=== PATIENT | male | born 1965 | race American Indian/Alaskan Native ===

== ENCOUNTER 2016-10-02 18:50 | Observation (INO) | payer SELFPAY ==
[2016-10-02 19:00] VITALS: TEMP 98.1
--- NOTE | 2016-10-02 19:29 | C.PDOC ---
History Of Present Illness 51 year old male presents to the ED via EMS for public intoxication. Patient shows no signs of injury. Chief Complaint (Nursing): Substance Abuse History Per: EMS History/Exam Limitations: intoxication Onset/Duration Of Symptoms: Hrs Current Symptoms Are (Timing): Still Present Suicide/Self Injury Attempted (Context): None Modifying Factor(s): Alcohol Severity: Mild Recent travel outside of the [place]: No Additional History Per: EMS Past Medical History Reviewed: Historical Data, Nursing Documentation, Vital Signs Vital Signs: Last Vital Signs Temp 98.1 F 10/02/16 19:00 Pulse 80 10/02/16 22:00 Resp 14 10/02/16 22:00 BP 120/80 10/02/16 22:00 Pulse Ox 97 10/03/16 01:07 - Medical History PMH: HTN Surgical History: No Surg Hx - [facility] Procedures ALCOHOL DETOXIFICATION (02/18/14) Family History: States: Unknown Family Hx - Social History Hx Tobacco Use: Yes Hx Alcohol Use: Yes Hx Substance Use: No - Immunization History Hx Tetanus Toxoid Vaccination: Yes Hx Influenza Vaccination: Yes Hx Pneumococcal Vaccination: Yes Review Of Systems Review Of Systems: ROS cannot be obtained secondary to pt's inabilty to answer questions. (Intoxication) Physical Exam - Physical Exam Appears: Non-toxic, Other (+Intoxicated +AOB) Skin: Normal Color, Warm, Dry Head: Atraumatic, Normacephalic, No Abrasion, No Laceration Eye(s): bilateral: Normal Inspection Oral Mucosa: Moist Tongue: Normal Appearing Throat: Normal Neck: Normal, Supple Chest: Symmetrical Respiratory: No Accessory Muscle Use Gastrointestinal/Abdominal: Normal Exam Extremity: No Tenderness, No Deformity, No Swelling ED Course And Treatment - Laboratory Results Result Diagrams: 10/02/16 19:56 10/02/16 19:56 O2 Sat by Pulse Oximetry: 97 (Room air) Pulse Ox Interpretation: Normal - CT Scan/US CT Head W/O contrast Other Rad Studies (CT/US): Read By Radiologist CT/US Interpretation: IMPRESSION: 1. No acute intracranial abnormality. 2. Incidental/non-acute findings are described above. Progress Note: Blood work ordered and reviewed. Progress: Patient is hypotensive, not responsive. Fluids are drained with a bhardwaj. Dextrose, 0.4 mg Narcan and IV fluids given. Upon reevaluation, patient is alert and awake. He has a steady gait and has no focal deficits. Medical Decision Making Medical Decision Making: Patient to be observe , will do a CT of he head. Disposition Counseled Patient/Family Regarding: Diagnosis - Disposition Disposition: HOME/ ROUTINE Disposition Time: 22:50 Condition: STABLE - POA Present On Arrival: None - Clinical Impression Clinical Impression: Drug abuse, Alcohol intoxication - Scribe Statement The provider has reviewed the documentation as recorded by the Scribe Lana Sharma. Provider Attestation: All medical record entries made by the Bernabeibe were at my direction and personally dictated by me. I have reviewed the chart and agree that the record accurately reflects my personal performance of the history, physical exam, medical decision making, and the department course for this patient. I have also personally directed, reviewed, and agree with the discharge instructions and disposition.
[2016-10-02] MEDS ORDERED: Sodium Chloride 0.9% 1,000 ML IV ONE (19:46)
[2016-10-02] MEDS ORDERED: Dextrose 50% SYRINGE Inj (50 ml) IV STA (19:47)
[2016-10-02] MEDS ORDERED: Naloxone 0.4 mg/ml Inj (Adult) IVP ONE (19:47)
[2016-10-02] MEDS ORDERED: Naloxone 0.4 mg/ml Inj (Adult) ONE ×2 (19:58→20:03)
[2016-10-02] MEDS ORDERED: Dextrose 50% SYRINGE Inj (50 ml) ONE (19:58)
[2016-10-02 20:01] LABS: BASO # 0.1 K/uL (0.0-0.2); BASO % 0.9 % (0.0-2.0); EOS # 0.7 K/uL (0.0-0.7); EOS % 7.4 % (0.0-4.0); HEMATOCRIT 36.3 % (35.0-51.0); MEAN CELL VOLUME 95.5 fL (80.0-94.0); MEAN CORPUSCULAR HEMOGLOBIN 31.6 pg (27.0-31.0); MEAN CORPUSCULAR HGB CONC 33.1 g/dL (33.0-37.0); MEAN PLATELET VOLUME 9.4 fL (7.2-11.7); MONO # 1.3 K/uL (0.0-0.8); MONO % 13.4 % (0.0-10.0); NRBC % 0.1 % (0.0-2.0); RED CELL DISTRIBUTION WIDTH 13.7 % (11.5-14.5); WHITE BLOOD COUNT 9.5 K/uL (4.8-10.8)
[2016-10-02 20:08] LABS: CHLORIDE 109 mmol/L (98-107); SODIUM 148 mmol/L (132-148)
[2016-10-02 20:09] LABS: POTASSIUM 4.1 mmol/L (3.6-5.2)
[2016-10-02 20:11] LABS: ALKALINE PHOSPHATASE 47 U/L (38-126); ALT/SGPT 29 U/L (21-72); AST/SGOT 37 U/L (17-59); BILIRUBIN,TOTAL 0.4 mg/dL (0.2-1.3); BLOOD UREA NITROGEN 7 mg/dL (9-20); CALCIUM 8.6 mg/dl (8.6-10.4); CARBON DIOXIDE 25 mmol/L (22-30); GFR AFRICAN-AMERICAN > 60; GLUCOSE,RANDOM 81 mg/dL (75-110); TOTAL PROTEIN 7.6 g/dL (6.3-8.3)
[2016-10-02 20:12] LABS: ALCOHOL SERUM 207 mg/dl (0-10)
--- NOTE | 2016-10-02 21:02 | CT ---
EXAM: CT Head Without Intravenous Contrast. CLINICAL HISTORY: 51 years old, male; Signs and symptoms; Other: Patient ETOH and found unresponsive TECHNIQUE: Axial computed tomography images of the head/brain without intravenous contrast. This CT exam was performed using one or more of the following dose reduction techniques: automated exposure control, adjustment of the mA and/or kV according to patient size, and/or use of iterative reconstruction technique. Coronal and sagittal reformatted images were created and reviewed. COMPARISON: No relevant prior studies available. FINDINGS: Brain: Mild atrophy. No intracranial hemorrhage. No mass. No definite edema. Ventricles: No hydrocephalus. Bones/joints: No acute fracture. Chronic deformity medial wall of LEFT orbit. Soft tissues: Unremarkable. Sinuses: Minimal to mild mucosal thickening of ethmoid, LEFT maxillary sinuses. Mastoid air cells: No mastoid effusion. Orbits: Unremarkable as visualized. IMPRESSION: 1. No acute intracranial abnormality. 2. Incidental/non-acute findings are described above.
[2016-10-02 23:58] VITALS: BP 120/80; PULSE 80; RESP 14
[2016-10-03 00:17] VITALS: O2SAT 97
== END 2016-10-03 00:03 | disposition home or self-care (01) ==
LOC: C.ER 18:50 → C.9OBSV 21:40
PROVIDERS: ADMIT Emergency Medicine; ATTEND Emergency Medicine
DX: F10.129 Alcohol abuse with intoxication, unspecified (principal); F19.10 Other psychoactive substance abuse, uncomplicated; I95.9 Hypotension, unspecified; R40.4 Transient alteration of awareness; Z87.891 Personal history of nicotine dependence; Y90.7 Blood alcohol level of 200-239 mg/100 ml
CPT/HCPCS: 70450; 80053; 82948; 85025; 96374; 99284; G0378; G0480; J2310; J7040

== ENCOUNTER 2017-03-09 10:03 | Emergency (ER) | payer SELFPAY ==
[2017-03-09 10:15] VITALS: BMI 28.8
[2017-03-09 10:16] VITALS: BP 138/92; PULSE 83; RESP 16; TEMP 98.5; O2SAT 97
--- NOTE | 2017-03-09 10:34 | C.PDOC ---
Time Seen by Provider: 03/09/17 10:06 Chief Complaint (Nursing): Substance Abuse Past Medical History Vital Signs: Last Vital Signs Temp 98.5 F 03/09/17 10:14 Pulse 83 03/09/17 10:14 Resp 16 03/09/17 10:14 BP 138/92 H 03/09/17 10:14 Pulse Ox 97 03/09/17 10:14 - Medical History PMH: HTN Denies: Anxiety, Bipolar Disorder, Depression, Diabetes, Hepatitis, HIV, Personality Disorder, Schizophrenia, Seizures, Sexually Transmitted Disease - [facility] Procedures ALCOHOL DETOXIFICATION (02/18/14) Family History: States: Unknown Family Hx - Social History Hx Tobacco Use: Yes Hx Alcohol Use: Yes Hx Substance Use: No - Immunization History Hx Tetanus Toxoid Vaccination: Yes Hx Influenza Vaccination: No Hx Pneumococcal Vaccination: Yes ED Course And Treatment O2 Sat by Pulse Oximetry: 97 Disposition Counseled Patient/Family Regarding: Diagnosis, Need For Followup - Disposition Referrals: [facility] at [facility] [Outside] Disposition: HOME/ ROUTINE Disposition Time: 10:35 Condition: STABLE Additional Instructions: CALL FOR PRESCREENING RETURN TO ER AT LATER DATE TO TRY AGAIN OR IF YOU HAVE ANY CONCERNING SYMPTOMS Instructions: Alcohol Dependence (ED) Forms: [employer] (Beninese) Print Language: IRISH - POA Present On Arrival: None - Clinical Impression Clinical Impression: Alcohol dependence
--- NOTE | 2017-03-09 10:36 | C.PDOC ---
History Of Present Illness 51 year old male presents to the ED seeking detox from alcohol. Patient states he is a daily alcohol drinker and has attempted detox in the past, has "relapsed." He notes he is homeless . Patient has no current physical complants , or HI/SI. Time Seen by Provider: 03/09/17 10:06 Chief Complaint (Nursing): Substance Abuse History Per: Patient History/Exam Limitations: no limitations Onset/Duration Of Symptoms: Persistent Suicide/Self Injury Attempted (Context): None Modifying Factor(s): Alcohol Associated Symptoms: denies: Suicidal Thoughts, Suicidal Plan Additional History Per: Prior Records Past Medical History Reviewed: Historical Data, Nursing Documentation, Vital Signs Vital Signs: Last Vital Signs Temp 98.5 F 03/09/17 10:14 Pulse 83 03/09/17 10:14 Resp 16 03/09/17 10:14 BP 138/92 H 03/09/17 10:14 Pulse Ox 97 03/09/17 10:45 - Medical History PMH: HTN - [facility] Procedures ALCOHOL DETOXIFICATION (02/18/14) Family History: States: No Known Family Hx - Social History Hx Tobacco Use: Yes Hx Alcohol Use: Yes Hx Substance Use: No - Immunization History Hx Tetanus Toxoid Vaccination: Yes Hx Influenza Vaccination: No Hx Pneumococcal Vaccination: Yes Review Of Systems Except As Marked, All Systems Reviewed And Found Negative. Constitutional: Negative for: Fever, Chills Cardiovascular: Negative for: Chest Pain Respiratory: Negative for: Cough, Shortness of Breath Gastrointestinal: Negative for: Nausea, Vomiting, Abdominal Pain Psych: Negative for: Suicidal ideation Physical Exam - Physical Exam Appears: Well, Non-toxic, No Acute Distress Skin: Warm, Dry Head: Atraumatic, Normacephalic Eye(s): bilateral: Normal Inspection Oral Mucosa: Moist Neck: Supple Cardiovascular: Rhythm Regular Respiratory: Normal Breath Sounds, No Rhonchi, No Wheezing Gastrointestinal/Abdominal: Normal Exam, Bowel Sounds, Soft, No Tenderness Extremity: Bilateral: Atraumatic, Normal Color And Temperature, Normal ROM Neurological/Psych: Oriented x3 ED Course And Treatment O2 Sat by Pulse Oximetry: 97 (room air ) Pulse Ox Interpretation: Normal Progress Note: Spoke with crisis counselor, no detox beds are currently available. Explained this to patient, and he was given prescreening phone number and instructed to call or to return to ER at later date to try again. He understands he should return to ED if symptoms worsen. Disposition Counseled Patient/Family Regarding: Diagnosis, Need For Followup - Disposition Referrals: [facility] at [facility] [Outside] Disposition: HOME/ ROUTINE Disposition Time: 10:35 Condition: STABLE Additional Instructions: CALL FOR PRESCREENING RETURN TO ER AT LATER DATE TO TRY AGAIN OR IF YOU HAVE ANY CONCERNING SYMPTOMS Instructions: Alcohol Dependence (ED) Forms: [employer] (Mongolian) Print Language: GEORGIAN - POA Present On Arrival: None - Clinical Impression Clinical Impression: Alcohol dependence - Scribe Statement The provider has reviewed the documentation as recorded by the Scribe Savanna Stevenson All medical record entries made by the Bernabeibe were at my direction and personally dictated by me. I have reviewed the chart and agree that the record accurately reflects my personal performance of the history, physical exam, medical decision making, and the department course for this patient. I have also personally directed, reviewed, and agree with the discharge instructions and disposition.
== END 2017-03-09 10:42 | disposition home or self-care (01) ==
LOC: C.ER 10:03
DX: F10.20 Alcohol dependence, uncomplicated (principal); Y90.9 Presence of alcohol in blood, level not specified; Z59.0 Homelessness

== ENCOUNTER → 2017-03-16 02:25 | Emergency (ER) | payer MEDICAID ==
[2017-03-16 02:25] VITALS: BMI 28.8
[~2017-03-16 02:25] MED LIST: Naproxen 550 mg Tab PO ONE
== END | disposition left against medical advice (07) ==
LOC: C.ER 02:25
DX: Z04.8 Encounter for examination and observation for other specified reasons (principal); Z02.9 Encounter for administrative examinations, unspecified

== ENCOUNTER 2017-03-16 03:29 | Emergency (ER) | payer MEDICAID ==
[2017-03-16 03:29] VITALS: BMI 28.8
[2017-03-16 03:41] VITALS: TEMP 97.4; O2SAT 99
[2017-03-16] MEDS ORDERED: Naproxen 550 mg Tab PO STA (03:54)
--- NOTE | 2017-03-16 04:00 | C.PDOC ---
History Of Present Illness 51 y/o male with a hx chronic back pain, c/o pain to the lower back for several months. Pain is worse with ambulation. Patient is requesting a cane. Denies fall , trauma, weakness, numbness, incontinence of bladder or bowel, or any other complaints. Patient took Tylenol and ibuprofen with no relief. Time Seen by Provider: 03/16/17 03:47 Chief Complaint (Nursing): Back Pain History Per: Patient History/Exam Limitations: no limitations Onset/Duration Of Symptoms: Days (Several months), Persistent (Chronic) Current Symptoms Are (Timing): Still Present Quality Of Discomfort: "Pain" Severity: Mild Exacerbating Factor(s): Movement (Ambulation) Recent travel outside of the [place]: No Additional History Per: Patient Past Medical History Reviewed: Historical Data, Nursing Documentation, Vital Signs Vital Signs: Last Vital Signs Temp 97.4 F L 03/16/17 03:38 Pulse 86 03/16/17 03:38 Resp 16 03/16/17 03:38 BP 109/74 03/16/17 03:38 Pulse Ox 99 03/16/17 04:03 - Medical History PMH: HTN Denies: Anxiety, Bipolar Disorder, Depression, Diabetes, Hepatitis, HIV, Personality Disorder, Schizophrenia, Seizures, Sexually Transmitted Disease - [facility] Procedures ALCOHOL DETOXIFICATION (02/18/14) Family History: States: Unknown Family Hx - Social History Hx Tobacco Use: Yes Hx Alcohol Use: Yes Hx Substance Use: Yes - Immunization History Hx Tetanus Toxoid Vaccination: Yes Hx Influenza Vaccination: No Hx Pneumococcal Vaccination: Yes Review Of Systems Constitutional: Negative for: Other (Fall, trauma) Gastrointestinal: Negative for: Constipation Genitourinary: Negative for: Incontinence (Bladder nor bowel) Neurological: Negative for: Weakness, Numbness Physical Exam - Physical Exam Appears: Non-toxic, No Acute Distress Skin: Warm, Dry Head: Atraumatic, Normacephalic Eye(s): bilateral: Normal Inspection Gastrointestinal/Abdominal: Normal Exam Back: No CVA Tenderness, No Vertebral Tenderness, Paraspinal Tenderness (lumbar) , No Straight Leg Raising Extremity: Normal ROM, No Deformity, No Swelling Extremity: Bilateral: Atraumatic, Normal Color And Temperature Pulses: Left Dorsalis Pedis: Normal, Right Dorsalis Pedis: Normal Neurological/Psych: Oriented x3, Normal Motor, Normal Sensation, Other (No focal deficit) Gait: Steady ED Course And Treatment O2 Sat by Pulse Oximetry: 99 (RA) Pulse Ox Interpretation: Normal Progress Note: impression: 51 y/o male with a hx chronic back pain, c/o intermittent pain for several months. Plans: Naproxen. Naproxen PO was given to the patient. Patient is in no acute distress and is fully ambulatory with steady gait. Pt was advised to follow up with PMD for further evaluation. Reassessment Condition: Improved Disposition - Disposition Referrals: [facility] at [facility] [Outside] Disposition: HOME/ ROUTINE Disposition Time: 04:14 Condition: STABLE Prescriptions: Naproxen [Naprosyn] 1 tab PO BID PRN #14 tab PRN Reason: Pain Instructions: Chronic Back Pain (ED) Forms: [employer] (Scottish) - Clinical Impression Clinical Impression: Chronic back pain - Scribe Statement The provider has reviewed the documentation as recorded by the Scribe Belle esquivel All medical record entries made by the Scribe were at my direction and personally dictated by me. I have reviewed the chart and agree that the record accurately reflects my personal performance of the history, physical exam, medical decision making, and the department course for this patient. I have also personally directed, reviewed, and agree with the discharge instructions and disposition.
[2017-03-16 04:17] VITALS: BP 110/74; PULSE 84; RESP 20
== END 2017-03-16 04:16 | disposition home or self-care (01) ==
LOC: C.ER 03:29
DX: G89.29 Other chronic pain (principal); M54.5 Low back pain

== ENCOUNTER 2017-05-11 19:28 | Emergency (ER) | payer MEDICAID ==
[2017-05-11 19:28] VITALS: BMI 28.8
[2017-05-11 20:17] VITALS: BP 115/72; PULSE 90; RESP 20; TEMP 97.6; O2SAT 98
== END 2017-05-11 20:08 | disposition left against medical advice (07) ==
LOC: C.ER 19:28
DX: Z02.89 Encounter for other administrative examinations (principal); Z00.00 Encounter for general adult medical examination without abnormal findings

== ENCOUNTER 2017-08-26 17:17 | Emergency (ER) | payer SELFPAY ==
[2017-08-26 17:17] VITALS: BMI 28.8
[2017-08-26 17:26] VITALS: BP 130/90; PULSE 97; RESP 15; TEMP 97.2; O2SAT 97
== END 2017-08-26 17:23 | disposition left against medical advice (07) ==
LOC: C.ER 17:17
DX: Z02.89 Encounter for other administrative examinations (principal); F10.10 Alcohol abuse, uncomplicated

== ENCOUNTER 2017-09-06 18:21 | Emergency (ER) | payer SELFPAY ==
[2017-09-06 19:03] VITALS: BMI 28.1
[2017-09-06] MEDS ORDERED: Sodium Chloride 0.9% 1,000 ML ONE ×2 (19:32→21:14)
[2017-09-06] MEDS ORDERED: Sodium Chloride 0.9% 1,000 ML IV ONE ×2 (19:32→20:59)
--- NOTE | 2017-09-06 20:26 | C.PDOC ---
History Of Present Illness <Micki Cruz - Last Filed: 09/06/17 21:39> <Kateryna Benedict - Last Filed: 09/07/17 00:39> HPI: 52 year old male with no past medical history presents to the ED due alcohol intoxication. Difficult to attain ROS due to patient's current intoxication state. Patient states he drank 4 pints of vodka today, two 6 packs of beer (16oz) today. He states he does have history of DT and shakes if he does not drink. Patient states he does not recall where he was prior to arriving at the hospital. Patient denies complaints at this moment. Past Medical History: denies Allergies: fish Social History: Drinking for over 30 years vodka and beer, denies smoking or illicit drug use (Micki Cruz) History Per: Patient History/Exam Limitations: intoxication <Micki Cruz - Last Filed: 09/06/17 21:39> <Kateryna Benedict - Last Filed: 09/07/17 00:39> Chief Complaint (Nursing): Substance Abuse Past Medical History - Medical History PMH: HTN Denies: Anxiety, Bipolar Disorder, Depression, Diabetes, Hepatitis, HIV, Personality Disorder, Schizophrenia, Seizures, Sexually Transmitted Disease Family History: States: Unknown Family Hx - Social History Hx Tobacco Use: Yes Hx Alcohol Use: Yes Hx Substance Use: Yes - Immunization History Hx Tetanus Toxoid Vaccination: Yes Hx Influenza Vaccination: No Hx Pneumococcal Vaccination: Yes <Micki Cruz - Last Filed: 09/06/17 21:39> Vital Signs: Last Vital Signs Temp 98.0 F 09/06/17 22:09 Pulse 98 H 09/06/17 22:09 Resp 18 09/06/17 22:09 BP 130/79 09/06/17 22:09 Pulse Ox 97 09/06/17 22:09 - [facility] Procedures ALCOHOL DETOXIFICATION (02/18/14) Review Of Systems Review Of Systems: ROS cannot be obtained secondary to pt's inabilty to answer questions. <Micki Cruz - Last Filed: 09/06/17 21:39> Physical Exam - Physical Exam Appears: Toxic Skin: Normal Color, Other (left upper extremity -forearm has scars - patient states he cut himself a few years back because he was depressed ) Head: Atraumatic, Normacephalic Eye(s): bilateral: Normal Inspection, PERRL, EOMI Oral Mucosa: Moist Cardiovascular: Rhythm Regular Respiratory: Normal Breath Sounds, No Decreased Breath Sounds, No Accessory Muscle Use Gastrointestinal/Abdominal: Normal Exam, Bowel Sounds (normal), Soft, No Tenderness Extremity: No Tenderness, No Pedal Edema <Micki Cruz - Last Filed: 09/06/17 21:39> ED Course And Treatment - Laboratory Results Result Diagrams: 09/06/17 21:03 09/06/17 21:03 O2 Sat by Pulse Oximetry: 98 <Micki Cruz - Last Filed: 09/06/17 21:39> - Laboratory Results Result Diagrams: 09/06/17 21:03 09/06/17 21:03 Lab Interpretation: Abnormal (HCO3 19, K+ 3.1 UDS + benzos ETOH 159) Pulse Ox Interpretation: Normal Progress Note: Patient treated with 2 liters of normal saline. Heart rate and blood presure normalized. 12:40 Patient continues to be groggy with slurred speech, appearing intoxicated. Now admits to taking Ativan twice today. <Kateryna Benedict - Last Filed: 09/07/17 00:39> Medical Decision Making <Micki Cruz - Last Filed: 09/06/17 21:39> <Kateryna Benedict - Last Filed: 09/07/17 00:39> Medical Decision Making: Substance Abuse: CBC: H/H: 11.5/33.9 K: 3.1 - repleated Kdur 40mg once - UDS: + benzodiazepines - Serum Alcohol: 159 (Micki Cruz) Disposition <Micki Cruz - Last Filed: 09/06/17 21:39> - Disposition Disposition Time: 00:38 <Kateryna Benedict - Last Filed: 09/07/17 00:39> - Disposition Condition: IMPROVED Forms: [facility] (Estonian) - Clinical Impression Clinical Impression: Polysubstance abuse, Dehydration - PA / [employer] / Resident Statement MD/DO has reviewed & agrees with the documentation as recorded. MD/ has examined the patient and agrees with the treatment plan. <Micki Cruz - Last Filed: 09/06/17 21:39> Physician Patient Turnover Patient Signed Over To: Fanny Hall Handoff Comments: pending sobriety <Kateryna Benedict - Last Filed: 09/07/17 00:39>
--- NOTE | 2017-09-06 20:36 | C.PDOC ---
Chief Complaint (Nursing): Substance Abuse Past Medical History Vital Signs: Last Vital Signs Temp 99.6 F 09/06/17 19:03 Pulse 102 H 09/06/17 20:10 Resp 18 09/06/17 20:10 BP 108/70 09/06/17 20:10 Pulse Ox 98 09/06/17 20:10 - Medical History PMH: HTN Denies: Anxiety, Bipolar Disorder, Depression, Diabetes, Hepatitis, HIV, Personality Disorder, Schizophrenia, Seizures, Sexually Transmitted Disease - [facility] Procedures ALCOHOL DETOXIFICATION (02/18/14) Family History: States: Unknown Family Hx - Social History Hx Tobacco Use: Yes Hx Alcohol Use: Yes Hx Substance Use: Yes - Immunization History Hx Tetanus Toxoid Vaccination: Yes Hx Influenza Vaccination: No Hx Pneumococcal Vaccination: Yes ED Course And Treatment O2 Sat by Pulse Oximetry: 98 Disposition - Disposition
[2017-09-06 21:06] LABS: BASO # 0.1 K/uL (0.0-0.2); BASO % 0.6 % (0.0-2.0); EOS % 0.5 % (0.0-4.0); HEMOGLOBIN 11.5 g/dL (12.0-18.0); LYMPH # 2.3 K/uL (1.0-4.3); LYMPH % 26.6 % (20.0-40.0); MEAN CORPUSCULAR HEMOGLOBIN 30.5 pg (27.0-31.0); MEAN CORPUSCULAR HGB CONC 33.8 g/dL (33.0-37.0); MEAN PLATELET VOLUME 9.3 fL (7.2-11.7); MONO % 11.6 % (0.0-10.0); NEUT # 5.2 K/uL (1.8-7.0); NEUT % 60.7 % (50.0-75.0); NRBC % 0.1 % (0.0-2.0); RBC 3.76 Mil/uL (4.40-5.90); RED CELL DISTRIBUTION WIDTH 15.4 % (11.5-14.5); WHITE BLOOD COUNT 8.5 K/uL (4.8-10.8)
[2017-09-06 21:08] LABS: MEAN CELL VOLUME 90.1 fL (80.0-94.0)
[2017-09-06 21:21] LABS: ALB/GLOB RATIO 1.2 (1.0-2.1); ALBUMIN 4.1 g/dL (3.5-5.0); ALT/SGPT 25 U/L (21-72); AST/SGOT 51 U/L (17-59); BLOOD UREA NITROGEN 9 mg/dL (9-20); CALCIUM 9.2 mg/dl (8.6-10.4); GFR AFRICAN-AMERICAN > 60; GFR NON-AFRICAN AMERICAN > 60
[2017-09-06 21:32] LABS: BARBITURATES, UR NEGATIVE (NEGATIVE); OPIATES, UR NEGATIVE (NEGATIVE); PHENCYCLIDINE, UR NEGATIVE (NEGATIVE)
[2017-09-06 21:33] LABS: BENZODIAZEPINES, UR POSITIVE (NEGATIVE)
[2017-09-06] MEDS ORDERED: Potassium Chloride 20 mEq ER Tab PO ONE (22:06)
[2017-09-07 05:13] VITALS: BP 149/76; PULSE 76; RESP 20; TEMP 98.6; O2SAT 96
[2017-09-07] MEDS ORDERED: Potassium Chloride 20 mEq ER Tab PO ONE (21:40)
--- NOTE | 2017-09-08 13:21 | CARD ---
APPROVED REPORT EKG Measurement Heart [id number] <Conclusion> Sinus tachycardia T wave abnormality, consider inferior ischemia Abnormal ECG
== END 2017-09-07 05:04 | disposition home or self-care (01) ==
LOC: C.ER 18:21
DX: F19.10 Other psychoactive substance abuse, uncomplicated (principal); E86.0 Dehydration; E87.6 Hypokalemia
CPT/HCPCS: 80053; 82948; 85025; 93005; 96360; 96361; 99285; G0480; J7040

== ENCOUNTER 2017-09-10 16:55 | Emergency (ER) | payer MEDICAID ==
[2017-09-10 17:08] VITALS: BMI 30.4
[2017-09-10 17:13] VITALS: TEMP 96
[2017-09-10 18:56] VITALS: O2SAT 100
--- NOTE | 2017-09-10 19:57 | C.PDOC ---
History Of Present Illness Patient is a 52 y/o male who presents to the ED [facility] for public intoxication. Patient has many prior evaluations for the same; last seen at [place] yesterday and presents to [facility] ED today as fourth visit this month. Patient has no physical complains at this time. Time Seen by Provider: 09/10/17 17:49 Chief Complaint (Nursing): Substance Abuse History Per: Patient, EMS History/Exam Limitations: no limitations Onset/Duration Of Symptoms: Hrs Current Symptoms Are (Timing): Still Present Suicide/Self Injury Attempted (Context): None Modifying Factor(s): Alcohol Recent travel outside of the [place]: No Past Medical History Reviewed: Historical Data, Nursing Documentation, Vital Signs Vital Signs: Last Vital Signs Temp 96 F L 09/10/17 17:08 Pulse 95 H 09/10/17 21:30 Resp 12 09/10/17 21:30 BP 106/71 09/10/17 21:30 Pulse Ox 100 09/10/17 21:30 - Medical History PMH: HTN Denies: Anxiety, Bipolar Disorder, Depression, Diabetes, Hepatitis, HIV, Personality Disorder, Schizophrenia, Seizures, Sexually Transmitted Disease Surgical History: No Surg Hx - [facility] Procedures ALCOHOL DETOXIFICATION (02/18/14) Family History: States: No Known Family Hx - Social History Hx Tobacco Use: Yes Hx Alcohol Use: Yes Hx Substance Use: Yes - Immunization History Hx Tetanus Toxoid Vaccination: Yes Hx Influenza Vaccination: No Hx Pneumococcal Vaccination: Yes Review Of Systems Neurological: Positive for: Other (EtOH intoxication) Physical Exam - Physical Exam Appears: Well, No Acute Distress, Other (EtOH on breath) Skin: Normal Color, Warm, Dry Head: Atraumatic, Normacephalic Oral Mucosa: Moist Chest: Symmetrical Cardiovascular: Rhythm Regular, No Murmur Respiratory: Normal Breath Sounds, No Rales, No Rhonchi, No Wheezing Gastrointestinal/Abdominal: Soft, No Tenderness Neurological/Psych: Other (responsive to only painful stimuli) ED Course And Treatment O2 Sat by Pulse Oximetry: 100 - CT Scan/US head CT Other Rad Studies (CT/US): Interpreted By Me (neg), Radiology Report Reviewed Progress Note: CT head ordered. Reevaluation Time: 21:50 Reassessment Condition: Improved (awake, alert, oriented) Medical Decision Making Medical Decision Making: typical alcohol abuse has a home to go to tonight not too cold to d/c to street. Disposition Doctor Will See Patient In The: Office Counseled Patient/Family Regarding: Studies Performed, Diagnosis - Disposition Disposition: HOME/ ROUTINE Disposition Time: 21:51 Condition: GOOD Forms: [facility] (Ukrainian) - Clinical Impression Clinical Impression: Alcohol abuse - Scribe Statement The provider has reviewed the documentation as recorded by the Scribe Michelle Bone All medical record entries made by the Scribe were at my direction and personally dictated by me. I have reviewed the chart and agree that the record accurately reflects my personal performance of the history, physical exam, medical decision making, and the department course for this patient. I have also personally directed, reviewed, and agree with the discharge instructions and disposition.
--- NOTE | 2017-09-10 21:02 | CT ---
EXAM: CT Head Without Intravenous Contrast CLINICAL HISTORY: 52 years old, male; Signs and symptoms; Altered mental status/memory loss; Additional info: ETOH, change of ms, ? trauma TECHNIQUE: Axial computed tomography images of the head/brain without intravenous contrast. All CT scans at this facility use one or more dose reduction techniques, viz.: automated exposure control; ma/kV adjustment per patient size (including targeted exams where dose is matched to indication; i.e. head); or iterative reconstruction technique. COMPARISON: CT - HEAD W/O CONTRAST 2016-10-02 20:40 FINDINGS: Brain: Hypodensity in the white matter consistent with chronic small vessel disease. No mass, mass effect, or midline shift. No hemorrhage. Ventricles: Unremarkable. No ventriculomegaly. Bones/joints: Unremarkable. No acute fracture. Soft tissues: Unremarkable. Sinuses: Bilateral maxillary sinus mucosal thickening. The Mastoid air cells: Unremarkable as visualized. No mastoid effusion. IMPRESSION: No acute intracranial abnormality.
[2017-09-10 21:45] VITALS: BP 106/71; PULSE 95; RESP 12
== END 2017-09-10 22:45 | disposition home or self-care (01) ==
LOC: C.ER 16:55
DX: F10.10 Alcohol abuse, uncomplicated (principal)

== ENCOUNTER 2017-09-26 23:03 | Emergency (ER) | payer MEDICAID ==
[2017-09-26 23:03] VITALS: BMI 30.4
--- NOTE | 2017-09-26 23:07 | C.PDOC ---
History Of Present Illness 52 year old male is brought to the ED by EMS after being found in the street intoxicated. Patient was found by the Police intoxicated in the street, upon arrival to the ED patient states he wants a pace to stay the night. Patient denies Si/HI, hallucinations, CP, SOB, abdominal pain. Time Seen by Provider: 09/26/17 23:06 History Per: Patient History/Exam Limitations: intoxication Onset/Duration Of Symptoms: Hrs Current Symptoms Are (Timing): Still Present Suicide/Self Injury Attempted (Context): None Modifying Factor(s): Alcohol Associated Symptoms: denies: Depression, Suicidal Thoughts, Suicidal Plan Involuntary Hold By: None Recent travel outside of the [place]: No Additional History Per: Patient Past Medical History Reviewed: Historical Data, Nursing Documentation, Vital Signs Vital Signs: Last Vital Signs Temp 97.8 F 09/27/17 05:27 Pulse 100 H 09/27/17 05:27 Resp 16 09/27/17 05:27 BP 129/68 09/27/17 05:27 Pulse Ox 98 09/27/17 05:27 - Medical History PMH: HTN Denies: Anxiety, Bipolar Disorder, Depression, Diabetes, Hepatitis, HIV, Personality Disorder, Schizophrenia, Seizures, Sexually Transmitted Disease Surgical History: No Surg Hx - [facility] Procedures ALCOHOL DETOXIFICATION (02/18/14) Family History: States: Unknown Family Hx - Social History Hx Tobacco Use: Yes Hx Alcohol Use: Yes Hx Substance Use: Yes - Immunization History Hx Tetanus Toxoid Vaccination: Yes Hx Influenza Vaccination: No Hx Pneumococcal Vaccination: Yes Review Of Systems Constitutional: Negative for: Fever, Chills Cardiovascular: Negative for: Chest Pain Respiratory: Negative for: Shortness of Breath Gastrointestinal: Negative for: Vomiting, Abdominal Pain Skin: Negative for: Rash Neurological: Negative for: Headache Psych: Negative for: Depression, Suicidal ideation Physical Exam - Physical Exam Appears: Non-toxic, No Acute Distress Skin: Warm, Dry Head: Normacephalic Eye(s): bilateral: Normal Inspection Nose: No Discharge, No Deformity Oral Mucosa: Moist Neck: Supple Chest: Symmetrical Cardiovascular: Rhythm Regular, No Murmur Respiratory: No Rales, No Rhonchi, No Wheezing Gastrointestinal/Abdominal: Soft, No Tenderness, No Guarding, No Rebound Extremity: Normal ROM, No Tenderness, No Swelling Neurological/Psych: Oriented x3 ED Course And Treatment O2 Sat by Pulse Oximetry: 97 (ON RA) Pulse Ox Interpretation: Normal Reevaluation Time: 05:39 Reassessment Condition: Improved Disposition Counseled Patient/Family Regarding: Studies Performed, Diagnosis, Need For Followup - Disposition Referrals: [facility] [Outside] Disposition: HOME/ ROUTINE Disposition Time: 23:06 Condition: FAIR Instructions: Alcohol Abuse and Alcoholism (DC) Forms: [facility] (Zimbabwean) - Clinical Impression Clinical Impression: Alcohol abuse, Alcohol intoxication - Scribe Statement The provider has reviewed the documentation as recorded by the Scribe Jovany Kline All medical record entries made by the Scribe were at my direction and personally dictated by me. I have reviewed the chart and agree that the record accurately reflects my personal performance of the history, physical exam, medical decision making, and the department course for this patient. I have also personally directed, reviewed, and agree with the discharge instructions and disposition.
[2017-09-27 05:28] VITALS: BP 129/68; PULSE 100; RESP 16; TEMP 97.8
[2017-09-27 05:39] VITALS: O2SAT 97
== END 2017-09-27 05:28 | disposition home or self-care (01) ==
LOC: C.ER 23:03
DX: F10.129 Alcohol abuse with intoxication, unspecified (principal); I10 Essential (primary) hypertension; Z72.0 Tobacco use

== ENCOUNTER 2017-10-02 22:29 | Emergency (ER) | payer MEDICAID ==
[2017-10-02 22:29] VITALS: BMI 30.4
[2017-10-02 23:01] VITALS: O2SAT 96
--- NOTE | 2017-10-03 01:26 | C.PDOC ---
History Of Present Illness Pt is a 52 yo who presents requesting detox.He is a daily drinker,claims he last ingested yesterday Chief Complaint (Nursing): Substance Abuse History Per: Patient History/Exam Limitations: no limitations Onset/Duration Of Symptoms: Unknown Modifying Factor(s): Alcohol Severity: Mild Associated Symptoms: denies: Anger, Anxiety, Suicidal Plan Past Medical History Vital Signs: Last Vital Signs Temp 97.9 F 10/03/17 01:42 Pulse 83 10/03/17 01:42 Resp 18 10/03/17 01:42 BP 122/71 10/03/17 01:42 Pulse Ox 98 10/03/17 01:42 - Medical History PMH: HTN Denies: Anxiety, Bipolar Disorder, Depression, Diabetes, Hepatitis, HIV, Personality Disorder, Schizophrenia, Seizures, Sexually Transmitted Disease - [facility] Procedures ALCOHOL DETOXIFICATION (02/18/14) Family History: States: Unknown Family Hx - Social History Hx Tobacco Use: Yes Hx Alcohol Use: Yes Hx Substance Use: Yes - Immunization History Hx Tetanus Toxoid Vaccination: Yes Hx Influenza Vaccination: No Hx Pneumococcal Vaccination: Yes Review Of Systems Except As Marked, All Systems Reviewed And Found Negative. Physical Exam - Physical Exam Appears: Non-toxic Skin: Normal Color Head: Atraumatic Eye(s): bilateral: Normal Inspection, PERRL Ear(s): Bilateral: Normal Tongue: Normal Appearing Lips: Normal Appearing Neck: Normal, Normal ROM Lymphatic: Deferred Chest: Symmetrical Cardiovascular: Rhythm Regular Respiratory: Normal Breath Sounds Gastrointestinal/Abdominal: Normal Exam Back: Normal Inspection Male Genital: Normal Inspection Extremity: Normal ROM Neurological/Psych: Oriented x3, Normal Speech, Normal Cognition Gait: Steady ED Course And Treatment O2 Sat by Pulse Oximetry: 96 Progress Note: there are currently no detox beds available.Pt is clinically sober,does not appear to be in withdrawal.Will provide withdrawal prophylaxis, give pt referrals to call for detox admission Disposition - Disposition Referrals: Alcoholics Anonymous [Outside] Disposition: HOME/ ROUTINE Disposition Time: 01:25 Condition: GOOD Additional Instructions: pt given contact numbers for detox programs in the area Prescriptions: chlordiazePOXIDE [Chlordiazepoxide HCl] 25 mg PO TID #9 cap Instructions: Alcohol Use - When Is Drinking a Problem? Forms: [employer] [facility] (Sami) - Clinical Impression Clinical Impression: Alcohol dependence
[2017-10-03 02:21] VITALS: BP 122/71; PULSE 83; RESP 18; TEMP 97.9
== END 2017-10-03 01:45 | disposition home or self-care (01) ==
LOC: C.ER 22:29
DX: F10.20 Alcohol dependence, uncomplicated (principal); Y90.9 Presence of alcohol in blood, level not specified

== ENCOUNTER 2017-10-04 00:52 | Emergency (ER) | payer MEDICAID ==
[2017-10-04 00:52] VITALS: BMI 30.4
[2017-10-04 01:01] VITALS: RESP 18
[2017-10-04 01:55] LABS: BASO # 0.1 K/uL (0.0-0.2); BASO % 1.1 % (0.0-2.0); EOS # 0.4 K/uL (0.0-0.7); EOS % 4.5 % (0.0-4.0); HEMOGLOBIN 13.4 g/dL (12.0-18.0); LYMPH # 3.1 K/uL (1.0-4.3); LYMPH % 33.3 % (20.0-40.0); MEAN CELL VOLUME 92.5 fL (80.0-94.0); MEAN CORPUSCULAR HEMOGLOBIN 31.1 pg (27.0-31.0); MEAN CORPUSCULAR HGB CONC 33.6 g/dL (33.0-37.0); MEAN PLATELET VOLUME 8.1 fL (7.2-11.7); MONO # 0.8 K/uL (0.0-0.8); MONO % 8.2 % (0.0-10.0); NEUT % 52.9 % (50.0-75.0); NRBC % 0.2 % (0.0-2.0); RBC 4.29 Mil/uL (4.40-5.90); RED CELL DISTRIBUTION WIDTH 15.1 % (11.5-14.5); WHITE BLOOD COUNT 9.4 K/uL (4.8-10.8)
--- NOTE | 2017-10-04 02:04 | C.PDOC ---
History Of Present Illness <Heaven Allen - Last Filed: 10/04/17 05:56> <Rhiannon Zayas - Last Filed: 10/04/17 06:26> 52 year old male presents to the ED requesting detox from alcohol. Patient states he drinks 3 paint of vodka daily. Patient reports his last drink was today 1 hour [employer]. Patient denies other complaints, SI/HI, hallucinations, CP, SOB, abdominal pain. (Rhiannon Zayas) <Heaven Allen - Last Filed: 10/04/17 05:56> History Per: Patient History/Exam Limitations: no limitations Onset/Duration Of Symptoms: Hrs Current Symptoms Are (Timing): Still Present Suicide/Self Injury Attempted (Context): None Modifying Factor(s): Alcohol Associated Symptoms: denies: Depression, Suicidal Thoughts, Suicidal Plan Involuntary Hold By: None Recent travel outside of the [place]: No Additional History Per: Patient <Rhiannon Zayas - Last Filed: 10/04/17 06:26> Time Seen by Provider: 10/04/17 01:37 Chief Complaint (Nursing): Substance Abuse Past Medical History Reviewed: Historical Data, Nursing Documentation, Vital Signs - Medical History PMH: HTN Denies: Anxiety, Bipolar Disorder, Depression, Diabetes, Hepatitis, HIV, Personality Disorder, Chronic Kidney Disease, Schizophrenia, Seizures, Sexually Transmitted Disease Surgical History: No Surg Hx Family History: States: Unknown Family Hx - Social History Hx Tobacco Use: Yes Hx Alcohol Use: Yes Hx Substance Use: Yes (PT DENIES) - Immunization History Hx Tetanus Toxoid Vaccination: Yes Hx Influenza Vaccination: No Hx Pneumococcal Vaccination: Yes <Rhiannon Zayas - Last Filed: 10/04/17 06:26> Vital Signs: Last Vital Signs Temp 97.9 F 10/04/17 05:18 Pulse 87 10/04/17 05:18 Resp 18 10/04/17 05:18 BP 95/57 L 10/04/17 05:18 Pulse Ox 97 10/04/17 05:18 - [facility] Procedures ALCOHOL DETOXIFICATION (02/18/14) Review Of Systems Constitutional: Negative for: Fever, Chills Cardiovascular: Negative for: Chest Pain Respiratory: Negative for: Cough, Shortness of Breath Gastrointestinal: Negative for: Nausea, Abdominal Pain Skin: Negative for: Rash Psych: Negative for: Depression, Suicidal ideation <Rhiannon Zayas - Last Filed: 10/04/17 06:26> Physical Exam - Physical Exam Appears: Non-toxic, No Acute Distress Skin: Normal Color, Warm, Dry Head: Atraumatic, Normacephalic Eye(s): bilateral: Normal Inspection Nose: No Discharge Oral Mucosa: Moist Neck: Normal ROM, Supple Chest: Symmetrical Cardiovascular: Rhythm Regular, No Murmur Respiratory: Normal Breath Sounds, No Rales, No Rhonchi, No Wheezing Gastrointestinal/Abdominal: Soft, No Tenderness, No Guarding, No Rebound Extremity: Normal ROM, No Tenderness, No Swelling Neurological/Psych: Oriented x3 <Rhiannon Zayas - Last Filed: 10/04/17 06:26> ED Course And Treatment - Laboratory Results Result Diagrams: 10/04/17 01:52 10/04/17 01:52 <Heaven Allen - Last Filed: 10/04/17 05:56> - Laboratory Results Result Diagrams: 10/04/17 01:52 10/04/17 01:52 O2 Sat by Pulse Oximetry: 98 (On RA) Pulse Ox Interpretation: Normal Progress Note: Plan: - Labs. - UA. - Crisis evaluation. Pt was screened by crisis and case d/w Dr Helm and will not admit pt to detox as pt was recently detoxed. Pt remains stable in ED and AAOx3, pt will be d/c Reassessment Condition: Improved <Rhiannon Zayas - Last Filed: 10/04/17 06:26> Disposition - Disposition Disposition Time: 05:57 <Heaven Allen - Last Filed: 10/04/17 05:56> <Rhiannon Zayas - Last Filed: 10/04/17 06:26> - Disposition Referrals: [facility] [Outside] Disposition: HOME/ ROUTINE Condition: STABLE Forms: [facility] (Sinhala) - Clinical Impression Clinical Impression: Alcohol dependence <Heaven Allen - Last Filed: 10/04/17 05:56> - PA / PLANT CHANGER / Resident Statement MD/DO has reviewed & agrees with the documentation as recorded. - Scribe Statement The provider has reviewed the documentation as recorded by the Scribe <Rhiannon Zayas - Last Filed: 10/04/17 06:26> - Scribe Statement Jovany Kline All medical record entries made by the Scribe were at my direction and personally dictated by me. I have reviewed the chart and agree that the record accurately reflects my personal performance of the history, physical exam, medical decision making, and the department course for this patient. I have also personally directed, reviewed, and agree with the discharge instructions and disposition. (Rhiannon Zayas)
[2017-10-04 02:13] LABS: ALBUMIN 4.1 g/dL (3.5-5.0); ALT/SGPT 26 U/L (21-72); AST/SGOT 38 U/L (17-59); BLOOD UREA NITROGEN 12 mg/dL (9-20); CALCIUM 8.7 mg/dl (8.6-10.4); GFR AFRICAN-AMERICAN > 60; GFR NON-AFRICAN AMERICAN > 60
[2017-10-04 03:36] LABS: SQUAMOUS EPITHIAL < 1 /hpf (0-5); URINE BACTERIA RARE (<OCC); URINE BILIRUBIN NEGATIVE (NEGATIVE); URINE BLOOD NEGATIVE (NEGATIVE); URINE CLARITY Hazy (Clear); URINE COLOR Amber (YELLOW); URINE GLUCOSE (UA) NORMAL (Normal); URINE LEUKOCYTE ESTERASE NEG Leu/uL (Negative); URINE PROTEIN 1+ mg/dL (NEGATIVE)
[2017-10-04 04:18] LABS: PHENCYCLIDINE, UR NEGATIVE (NEGATIVE)
[2017-10-04 04:19] LABS: BARBITURATES, UR NEGATIVE (NEGATIVE)
[2017-10-04 05:18] VITALS: BP 95/57; PULSE 87; TEMP 97.9
[2017-10-04 06:19] VITALS: O2SAT 98
== END 2017-10-04 06:09 | disposition home or self-care (01) ==
LOC: C.ER 00:52
DX: F10.20 Alcohol dependence, uncomplicated (principal); Y90.6 Blood alcohol level of 120-199 mg/100 ml